=== PATIENT | female | born 1980 | race Hispanic/Latino ===

== ENCOUNTER 2017-02-19 10:24 | Inpatient (IN) | payer BC ==
[2017-02-19] MEDS ORDERED: Lactated Ringer's 1,000 ML IV SCH (10:39)
[2017-02-19] MEDS ORDERED: Bicitra 30 ML UDCUP PO SCH (10:39)
[2017-02-19] MEDS ORDERED: Ondansetron HCl/PF 4 MG/2 ML Vial IVP PRN ×2 (10:39→13:17)
[2017-02-19] MEDS ORDERED: CEFAZOLIN/Water 2 GM/20 ML SYRINGE SLOW IVP SCH (10:39)
[2017-02-19 11:09] VITALS: BMI 34.4
[2017-02-19 11:17] LABS: Hemoglobin 13.1 g/dL (12.0-16.0); Mean Corpuscular HGB CONC 34.2 g/dL (32.0-36.0); Mean Corpuscular Hemoglobin 30.3 pg (27.0-31.0); Mean Corpuscular Volume 88.7 fl (81.0-99.0); Mean Platelet Volume 8.3 fL (7.4-10.4); Platelet Count 170 thou/uL (130-400); RBC Distribution Width 12.1 % (11.5-14.5); Red Blood Cell (RBC) Count 4.32 mill/uL (4.20-5.40)
[2017-02-19 11:56] LABS: HBSAg Index 0.25 S/CO (0-0.99); Hep B Surf Ag Non-Reactive S/CO (NonReactive)
[2017-02-19 11:57] LABS: Syphilis Antibody Nonreactive (Nonreactive); Syphilis Antibody Index 0.06 S/CO (<1.00 Non-Reactive)
[2017-02-19] MEDS ORDERED: Oxytocin 10 UNITS/ML VIAL ONE ×2 (12:02→12:03)
[2017-02-19] MEDS ORDERED: Ondansetron HCl/PF 4 MG/2 ML Vial ONE ×2 (12:03→16:51)
[2017-02-19] MEDS ORDERED: Morphine PF 1 MG/ML SYR ONE (12:04)
[2017-02-19] MEDS ORDERED: PHENYLEPHRINE-NS 100 MCG/ML 10 ML SYRINGE ONE ×2 (12:04→16:51)
[2017-02-19] MEDS ORDERED: Dexamethasone 4 mg/ml Vial ONE (12:05)
[2017-02-19] MEDS ORDERED: Ketorolac Tromethamine 30 MG/ML VIAL ONE ×2 (13:01→16:51)
[2017-02-19] MEDS ORDERED: Promethazine HCl 25 MG SUPP PR PRN (13:17)
[2017-02-19] MEDS ORDERED: Naloxone HCl 0.4 mg/ml Vial IV PRN (13:17)
[2017-02-19] MEDS ORDERED: Promethazine HCl 25 MG/ML VIAL IM PRN (13:17)
[2017-02-19] MEDS ORDERED: Naloxone HCl 0.4 mg/ml Vial IVP PRN ×2 (13:17)
[2017-02-19] MEDS ORDERED: Eucerin (Mineral Oil/Petrolatum,White) 30 gm Jar TOP PRN (13:17)
[2017-02-19] MEDS ORDERED: Meperidine HCl/PF 25 MG/ML VIAL SLOW IVP PRN (13:18)
[2017-02-19] MEDS ORDERED: Communication Order-Pharmacy FS SCH (13:30)
[2017-02-19] MEDS ORDERED: Ketorolac Tromethamine 30 MG/ML VIAL IVP SCH (13:30)
--- NOTE | 2017-02-19 14:31 | OP ---
DATE OF PROCEDURE: 02/19/2017 PREOPERATIVE DIAGNOSIS: Bladder laceration. POSTOPERATIVE DIAGNOSIS: Bladder laceration. PROCEDURE: Repair of bladder laceration. SURGEON: Sommre Adorno M.D. ANESTHESIA: Spinal. COMPLICATIONS: None. DRAINS REMAINING: PENNIE as well as a Hensley. No blood loss, no complications. INDICATIONS: The patient is a 36-year-old female who was undergoing a routine section after having a prior and was noted to have significant adherence of the bladder to the uterus itself and an inadvertent injury to the bladder was made and at this point I was consulted and asked to assist in evaluating and treating this injury intraoperatively. DESCRIPTION OF PROCEDURE: Patient was already in the OR with a spinal anesthetic. Her abdomen is already opened through a Pfannenstiel incision. Inspection of the injury revealed approximately 10-12 cm laceration longitudinally along anterior to superior portion of the bladder. There were no other injuries noted. I palpated the interior of the bladder and only noted a Hensley catheter that was in place. I then proceeded to close this in 2 layers ; initially I used a 3-0 Vicryl in running fashion for the mucosa, and I used 2 -0 vicryl for the second layer including the detrusor muscle in a running fashion as well. A few more interrupted sutures were used to reapporoximate the adventia to cover the suture line. At this time 150 mL of formula was instilled in the bladder. Good distention of the bladder was noted, but no leakage was seen through the incision line or elsewhere upon inspection. So at this point it was placed back to gravity, and a Rishi-Cole drain was placed in the left lower quadrant. The rest of the procedure would be further dictated by the Obstetrics team. GARFIELD
[2017-02-19] MEDS ORDERED: diphenhydrAMINE 25 MG CAP PO PRN (16:29)
[2017-02-19] MEDS ORDERED: LR w/ Pitocin 40 units/1000 ML BAG IV SCH (16:29)
[2017-02-19] MEDS ORDERED: Simethicone Chewable 80 MG TAB PO PRN (16:29)
[2017-02-19] MEDS ORDERED: Bisacodyl 10 MG SUPP PR PRN (16:29)
[2017-02-19] MEDS ORDERED: Lanolin Ointment 7 GM TUBE TOP PRN (16:29)
[2017-02-19] MEDS ORDERED: Dexamethasone 20 MG/5 ML VIAL ONE (16:51)
[2017-02-19] MEDS ORDERED: Oxybutynin 5 MG TAB PO PRN (16:57)
[2017-02-19] MEDS ORDERED: Morphine 10 MG/ML VIAL ONE (17:05)
[2017-02-19] MEDS: Ondansetron HCl/PF 4 MG/2 ML Vial IVP PRN ×2 (17:15→20:58)
[2017-02-19] MEDS ORDERED: Morphine 2 MG/ML SYRINGE SLOW IVP PRN (17:31)
[2017-02-19] MEDS ORDERED: Morphine 10 MG/ML VIAL SLOW IVP PRN (18:15)
[2017-02-19] MEDS: Ketorolac Tromethamine 30 MG/ML VIAL IVP PRN (20:04)
[2017-02-19] MEDS: CEFAZOLIN 1 GM, Syringe 2.5 ML in Sterile Water 7.5 ML SLOW IVP SCH (20:05)
[2017-02-19] MEDS: Ferrous Sulfate 325 MG TAB PO SCH (20:05)
--- NOTE | 2017-02-19 20:34 | CON ---
DATE OF CONSULTATION: 02/19/2017. I was consulted intraoperatively after a bladder injury was noted. I inquired about her current oper ation and any priors, but I waited until after completing the procedure to further discuss the patien t's medical history in detail with her. PAST MEDICAL HISTORY: Insignificant. PAST SURGICAL HISTORY: None other than 2 prior C-sections, one was for twins and the second was for a single and the only problem with a postoperative case of cellulitis is the incision. MEDICATIONS: vitamin and iron. ALLERGIES: None. SOCIAL HISTORY: She does not drink or smoke. REVIEW OF SYSTEMS: Reveals she has had normal Pap smears in the past and has not received any screen ing for mammograms or colonoscopies yet as they are not indicated for her age. FAMILY HISTORY: Her parents are alive and healthy and there are no cancers other than a maternal gra ndmother with pancreatic cancer and a paternal grandmother had MS. PHYSICAL EXAMINATION: SKIN: She is initially evaluated on the operating table and prepped and draped and a Pfannenstiel in cision was noted. Please see the operative report for further descriptions of this. Postoperatively , she had a bandage is intact and the PENNIE drain had minimal sanguineous output and a Hensley catheter wa s draining approximately 75 mL in the past 2 hours. A CBC was within normal limits. ASSESSMENT AND PLAN: We have a 36-year-old female status post with bladder injury and repa ir on 02/19/2017, now with a drain and Hensley reviewed. I will keep the drain in until it has minimal output and keep the Hensley in for approximately 10 days before receiving a cystogram as an outpatient basis.
[2017-02-19] MEDS: diphenhydrAMINE 50 MG/ML VIAL IVP PRN (21:43)
[2017-02-19] MEDS ORDERED: CEFAZOLIN 1 GM in Sodium Chloride 0.9% 100 ML IVPB SCH (22:00)
[2017-02-20] MEDS ORDERED: Meperidine HCl/PF 25 MG/ML VIAL IM PRN (01:30)
[2017-02-20] MEDS: Docusate Calcium (SURFAK) 240 MG CAP PO SCH ×3 (02:20→21:34)
[2017-02-20] MEDS: Ketorolac Tromethamine 30 MG/ML VIAL IVP PRN ×2 (02:24→08:30)
[2017-02-20] MEDS: CEFAZOLIN 1 GM, Syringe 2.5 ML in Sterile Water 7.5 ML SLOW IVP SCH ×3 (03:51→21:33)
[2017-02-20] MEDS: diphenhydrAMINE 50 MG/ML VIAL IVP PRN (04:12)
[2017-02-20 06:46] LABS: Hemoglobin 9.1 g/dL (12.0-16.0); Mean Corpuscular HGB CONC 33.8 g/dL (32.0-36.0); Mean Corpuscular Hemoglobin 30.1 pg (27.0-31.0); Mean Corpuscular Volume 89.2 fl (81.0-99.0); Mean Platelet Volume 8.4 fL (7.4-10.4); Platelet Count 141 thou/uL (130-400); Red Blood Cell (RBC) Count 3.01 mill/uL (4.20-5.40); White Blood Cell (WBC) Count 6.1 thou/uL (4.8-10.8)
[2017-02-20] MEDS ORDERED: Adacel (T-DAP) 0.5 ML VIAL IM ONE (09:00)
--- NOTE | 2017-02-20 12:41 | PRG ---
DATE OF SERVICE: 02/20/2017 SUBJECTIVE: The patient did well overnight and had no concerns. The Rishi- Cole and Hensley catheter were draining without difficulty. PHYSICAL EXAMINATION: VITAL SIGNS: T-max 98.8, heart rate 61. Blood pressure is 99/51. Rishi-Cole had drained 90 mL overnight. Hensley had put 850. On exam Rishi-Cole had minimal serosanguineous in the container itself and the Hensley bag is very full with clear yellow urine. Her incision is still taped significantly and her abdomen is gravid consistent with recent postop section. ASSESSMENT: We have a 36-year-old female status post with bladder injury status post repair who is doing well. PLAN: Continue the indwelling and the Rishi-Cole for now and anticipate getting the PENNIE out before discharge, but anticipate going home with the catheter and follow up as an outpatient. GARFIELD
[2017-02-20] MEDS: HYDROcodone/Acetaminophen 5/325 mg Tablet PO PRN ×3 (13:41→21:34)
[2017-02-20] MEDS: Ferrous Sulfate 325 MG TAB PO SCH ×2 (13:44→21:33)
[2017-02-20] MEDS: Prenatal Vitamin 1 TAB PO SCH (13:44)
[2017-02-20] MEDS: Ibuprofen 800 MG TAB PO SCH ×2 (13:45→21:34)
[2017-02-20] MEDS: Sodium Chloride 0.9% 10 ML ONE (21:33)
[2017-02-21] MEDS: HYDROcodone/Acetaminophen 5/325 mg Tablet PO PRN ×5 (04:05→22:08)
[2017-02-21] MEDS: CEFAZOLIN 1 GM, Syringe 2.5 ML in Sterile Water 7.5 ML SLOW IVP SCH ×2 (04:05→04:20)
[2017-02-21] MEDS: Ibuprofen 800 MG TAB PO SCH ×3 (04:07→22:06)
[2017-02-21] MEDS: Sodium Chloride 0.9% 10 ML ONE (09:17)
[2017-02-21] MEDS: Prenatal Vitamin 1 TAB PO SCH (09:22)
[2017-02-21] MEDS: Docusate Calcium (SURFAK) 240 MG CAP PO SCH ×2 (09:22→22:07)
[2017-02-21] MEDS: Ferrous Sulfate 325 MG TAB PO SCH ×2 (09:24→22:07)
--- NOTE | 2017-02-21 09:28 | PRG ---
DATE OF SERVICE: 02/21/2017 The patient did well overnight. Her vitals have been stable. Her output from the Hensley catheter has been more than 3 liters and from the PENNIE drain was only 40 mL for a 24-hour shift so at this point I removed it and placed a sterile gauze over the incision. In assessment we have a 36-year-old female status post with a bladder injury and with repai r who is drain has now been removed. She will need the indwelling catheter for a total of approximat iván 10 days. Will arrange for cystogram as an outpatient before Hensley removal.
[2017-02-21] MEDS ORDERED: Nitrofurantoin Monohyd/M-Cryst 100 MG CAP PO SCH (10:30)
[2017-02-21] MEDS: Nitrofurantoin Monohyd/M-Cryst 100 MG CAP PO SCH (22:07)
[2017-02-22] MEDS: HYDROcodone/Acetaminophen 5/325 mg Tablet PO PRN ×2 (02:40→08:56)
[2017-02-22] MEDS: Ibuprofen 800 MG TAB PO SCH ×2 (06:28→14:09)
[2017-02-22 07:46] VITALS: BP 118/58; TEMP 98.1
[2017-02-22] MEDS: Ferrous Sulfate 325 MG TAB PO SCH (08:56)
[2017-02-22] MEDS: Docusate Calcium (SURFAK) 240 MG CAP PO SCH (08:56)
[2017-02-22] MEDS: Prenatal Vitamin 1 TAB PO SCH (08:57)
[2017-02-22] MEDS: Nitrofurantoin Monohyd/M-Cryst 100 MG CAP PO SCH (10:30)
[2017-02-22 10:35] LABS: Bacteria/HPF None Seen HPF (None Seen); Hyaline Casts/LPF 0-3 HYALINE CAST LPF (0-3 Hyaline); Pathc Cast-AUWi Flag 0.67 (0-2.49); RBC/HPF GREATER THAN 50-TNTC HPF (0-3); Squamous Epithelial 0-3 HPF (0-3); WBC/HPF 0-3 HPF (0-3)
--- NOTE | 2017-03-20 17:16 | PQF ---
DEZ CANTRELL ROLAND R MD [id number] [facility] [id number] CLINICAL DOCUMENTATION CLARIFICATION FORM: POST DISCHARGE Addendum to original discharge summary date: _03/28/2007 Late entry note date: __ DATE: 03/20/2017 ATTN: ZEB DAWN MD Please exercise your independent, professional judgment in responding to the clarification form. Clinical indicators are provided on the bottom of this form for your review Please check appropriate box(s): In the description of the operative procedure, a bladder laceration was noted by the surgeon. If possible would you please further clarify if this was: [ X ] Incidental occurrence inherent in the surgical procedure [ ] Complication of the procedure [ ] Other [ ] Unable to determine For continuity of documentation, please document condition throughout progress notes and discharge summary. Thank You. CLINICAL INDICATORS - SIGNS / SYMPTOMS / LABS OPERATIVE NOTE PREOPERATIVE DIAGNOSIS: Bladder laceration POSTOPERATIVE DIAGNOSIS: Bladder laceration PROCEDURE: Repair of bladder laceration INDICATIONS: The patient is a 36-year-old female who was undergoing a routine section after having a prior and was noted to have significant adherence of the bladder to the uterus itself and an inadvertent injury to the bladder was made and at this point I was consulted and asked to assist in evaluating and treating this injury intraoperatively. RISK FACTORS significant adherence of the bladder to the uterus itself TREATMENTS: PROCEDURE: Repair of bladder laceration (This form is maintained as a part of the permanent medical record) 2014 [employer] All Rights Reserved Steve [email or web address] [phone] MTDD
--- NOTE | 2017-03-21 17:57 | OP ---
DATE OF PROCEDURE: 02/19/2017 PREOPERATIVE DIAGNOSES: 1. Term . 2. Previous section x2. POSTOPERATIVE DIAGNOSES: 1. Term . 2. Previous section x2. 3. Multiple intra-abdominal adhesions. PROCEDURES PERFORMED: 1. Repeat low cervical transverse section. 2. Repair of the bladder laceration. SURGEON: Leo Whittington M.D. AEMT: Dontae Zavala MD INTRAOPERATIVE CONSULTATION: Sommer Adorno MD ANESTHESIA: Spinal. DESCRIPTION OF EVENTS: After informed consent was obtained from the patient, she was taken to the op erating room where spinal anesthesia was administered. She was then prepped and draped in the usual sterile fashion. A Pfannenstiel incision was created over her previous scar and carried down to the fascia. The fascia was nicked in the midline and the fascial incision was extended transversely with Cronin scissors. The superior fascial segment was grasped with Kochers and elevated and the underlyin g rectus muscles were dissected free, first bluntly and then sharply. This was repeated with the inf erior fascial segment. The rectus muscles were elevated with a Carlotta clamp, and divided initially wi th Cronin scissors. The peritoneum was entered simultaneously. The bladder was adhesed to the anterio r abdominal wall and much higher on the uterus then normal and was lacerated upon entry into the abdo men due to extensive adhesions. It was recognized immediately. The bladder was then carefully disse cted from the lower uterine segment with the Metzenbaum scissors. Other adhesions between the anteri or uterine fundus and the anterior abdominal wall were taken down with the Bovie. The hysterotomy wa s made in a low transverse fashion in the lower uterine segment with a clean #10 scalpel blade and th is incision was extended with blunt dissection. Clear amniotic fluid was encountered. vertex was delivered onto the operative field. The remainder of the infant delivered uneventfully. Cord bl ood was obtained. The placenta was manually extracted. The uterus was then exteriorized and cleared of clots and debris. It was repaired with 0 Vicryl in a single full-thickness layer. Multiple figu re-of-eight sutures were placed along the incision line for reinforcement of the incision and for hem ostasis, which was observed. At this point, attention was turned to the bladder and by this time Dr. Adorno had arrived in the operating room. Please refer to her consult note and operative report for details of the bladder repair. The uterus was then returned to the abdomen. Hemostasis was again o bserved. Seprafilm was applied to the repaired uterine incision and the anterior uterine fundus and over the bladder repair. Peritoneum was unable to be repaired. The fascia was repaired with a runni ng suture of 0 PDS. Three interrupted sutures of 3-0 Vicryl were placed in the subdermal layer and t he skin was closed with skin katya. Sponge and instrument counts were correct x4. She tolerated t he procedure well and was taken to recovery in stable condition. FINDINGS: Viable female , Apgars 8 and 9. COMPLICATIONS: Multiple intra-abdominal adhesions with laceration of the bladder. ESTIMATED BLOOD LOSS: 800 mL.
== END 2017-02-22 15:45 | disposition home or self-care (01) | DRG 766 ==
LOC: L&D 10:24 → 3SW 17:42
PROVIDERS: ADMIT Family Medicine; ATTEND Family Medicine
PROC: 0TQB0ZZ Repair Bladder, Open Approach (ICD-10-PCS; principal; 2017-02-19)
PROC: 0T9B00Z Drainage of Bladder with Drainage Device, Open Approach (ICD-10-PCS; 2017-02-19)
PROC: 10D00Z1 Extraction of Products of Conception, Low, Open Approach (ICD-10-PCS; 2017-02-19)
PROC: 0JN80ZZ Release Abdomen Subcutaneous Tissue and Fascia, Open Approach (ICD-10-PCS; 2017-02-19)
PROC: 0UN90ZZ Release Uterus, Open Approach (ICD-10-PCS; 2017-02-19)
DX: O82 Encounter for cesarean delivery without indication (principal); N73.6 Female pelvic peritoneal adhesions (postinfective); Z37.0 Single live birth; Z3A.39 39 weeks gestation of pregnancy; O99.89 Other specified diseases and conditions complicating pregnancy, childbirth and the puerperium
CPT/HCPCS: 36415; 51702; 81015; 85027; 86780; 86850; 86900; 86901; 87086; 87340; A4216; J0690; J1100; J1200; J1885; J2270; J2274; J2405; J2590

== ENCOUNTER 2017-03-01 12:37 | Outpatient (CLI) | payer BC ==
--- NOTE | 2017-03-01 15:38 | RAD ---
FLUOROSCOPIC CYSTOGRAM: 03/01/17 CLINICAL HISTORY: Recent bladder laceration related to section. FINDINGS: Via the patient's indwelling urinary catheter, retrograde instillation of radiopaque contrast under l ow pressure was instilled into the urinary bladder. Early filming image revealed no evidence of signi ficant filling defect, aside from the expected insufflated urinary catheter balloon. Upon adequate di stention of the urinary bladder, there is no abnormal leakage of contrast. Upon micturition, there is a normal appearing female urethra. There is near completely emptying of the contents of the urinary bladder on postvoid imaging. Subsequent to voiding, the patient's catheter balloon was deflated and t he catheter was removed uneventfully. IMPRESSION: No abnormal leakage of contrast from the urinary bladder. Minimal postvoid residua. POS: YUE
[2017-03-01] MEDS ORDERED: ISOVUE-370 76%-LOCM 1 ML ONE (16:34)
== END 2017-03-01 12:38 | disposition home or self-care (01) ==
LOC: RAD 12:37
PROVIDERS: ATTEND Urology
DX: S37.23XA Laceration of bladder, initial encounter (principal)
CPT/HCPCS: 51600; 74430